=== PATIENT | female | born 1975 | race Caucasian/White ===

== ENCOUNTER → 2017-10-20 | Outpatient (CLI) | payer OTHER ==
[~2017-10-20] MED LIST: LSN5 PO; MULTTAB5 PO; NORE0.1T PO; OMEP20CA9 PO; ONDA4TAB7 SL; TRIA75TA53 PO; ZLF/100 PO
== END | disposition home or self-care (01) ==
LOC: C.PAPS 15:41
PROVIDERS: ATTEND Obstetrics & Gynecology
DX: N93.8 Other specified abnormal uterine and vaginal bleeding (principal); Z12.4 Encounter for screening for malignant neoplasm of cervix